=== PATIENT | female | born 2000 | race Caucasian/White ===

== ENCOUNTER 2022-04-06 13:49 | Emergency (ER) | payer MEDICAID, SELFPAY ==
[2022-04-06 14:11] VITALS: BP 146/93; PULSE 99; RESP 18; O2SAT 100
--- NOTE | 2022-04-06 17:00 | ED.FEMALEGU ---
HPI - Female Genitourinary General Chief complaint: Vaginal Bleeding Stated complaint: heavy bleeding on cycle, dizzy and lightheaded Time Seen by Provider: 04/06/22 16:55 Source: patient Mode of arrival: ambulatory Limitations: no limitations History of Present Illness HPI Narrative: Patient is a 21-year-old female who presents the ED with report of lightheadedness and heavy vaginal bleeding. Patient reports she began her menstrual cycle on Saturday. She states her cycles are typically very irregular and ranged from light to heavy, typically lasting 4 to 5 days at a time if she has another month. Over the last couple days, patient reports having increased vaginal bleeding, heavier than usual. She states she has been bleeding through an overnight pad every hour. She has felt intermittently lightheaded and nauseous. She has not vomited or passed out. She also reports having intermittent headache, for which she took Excedrin and ibuprofen today. She called her [employer]PER, Dr. Buckner, and was advised to come to the ED. Patient denies any fever, chills, abdominal pain, dysuria, urinary frequency, rectal bleeding, vision changes, focal weakness, cough or cold symptoms. She is on the Nexplanon arm implant control. Patient does mention she was seen at [facility] 2 weeks ago and diagnosed with a urinary tract infection. Per records, she has been taking Macrobid for this. Related Data Allergies Allergy/AdvReac Type Severity Reaction Status Date / Time No Known Allergies Allergy Mild Unverified 10/12/08 02:50 Review of Systems Review of Systems: CONSTITUTIONAL: Denies fever, chills. EYES: Denies visual changes. ENT: Denies rhinorrhea, congestion, sore throat. CARDIOVASCULAR: Denies chest pain. RESPIRATORY: Denies cough or dyspnea. GASTROINTESTINAL: Reports nausea. Denies abdominal pain, rectal bleeding, vomiting, or diarrhea. GENITOURINARY: Reports heavy vaginal bleeding. Denies dysuria, urinary frequency. MUSCULOSKELETAL: Denies back pain. NEUROLOGIC: Reports [place], lightheadedness. Denies syncope, numbness, or focal weakness. All systems reviewed & are unremarkable except as noted in HPI and below PMFSH Past Medical History Medical History History of ovarian cyst Surgical History Surgical History (Updated 04/06/22 @ 17:35 by Jolly Murphy PA-C) No pertinent past surgical history Social History Social History (Updated 04/06/22 @ 17:35 by Jolly Murphy PA-C) Smoking status: Never smoker Exam Narrative: GENERAL: Well appearing, obese, non-toxic, in no acute distress. HEAD: Normocephalic, atraumatic. NECK: Supple. No adenopathy, no masses. RESPIRATORY: Airway patent, respirations nonlabored. Clear to auscultation bilaterally, no rales, rhonchi, wheezing. CARDIOVASCULAR: Regular rate and rhythm without murmurs, rubs, or gallops. Peripheral pulses 2+ and equal bilaterally. ABDOMINAL: Soft, minimal tenderness to palpation in L lower abdomen. Nondistended, no hepatosplenomegaly. Normoactive BS. MUSCULOSKELETAL: Moves all extremities. Strength/ROM intact without gross deformities. PELVIC: Normal external genitalia. Speculum exam with some blood in vaginal vault and coming from cervical os. No pooling of blood, profuse bleeding, or signs of hemorrhage. No significant CMT. No genital lesions. SKIN: Warm, dry, normal color. No rashes. NEURO: A&O X3. Speech clear. Cranial nerves II-XII grossly intact. Steady gait. No ataxic movements. PSYCHIATRIC: Appropriate mood and affect. Normal interaction. Course Vital Signs Vital signs: Vital Signs Pulse Rate 99 04/06/22 14:11 Respiratory Rate 18 04/06/22 14:11 Blood Pressure 146/93 H 04/06/22 14:11 Pulse Oximetry 100 04/06/22 14:11 Oxygen Delivery Room Air 04/06/22 14:11 Pulse Rate 80 04/06/22 19:51 Respiratory Rate 18 04/06/22 19:51 Blood Pressure 123/83 04/06/22 19:51 Pulse Oximetr
[2022-04-06 17:25] LABS: Basophils Absolute Auto 0.1 K/mm3 (0.0-0.1); Basophils Percent Auto 0.5 % (0.2-1.2); Eosinophils Absolute Auto 0.1 K/mm3 (0-0.3); Eosinophils Percent Auto 0.9 % (0-4.4); Hematocrit 38.5 % (37.0-47.0); Hemoglobin 12.4 g/dL (12.0-15.0); Immature Granulocyte Absolute 0.03 K/mm3 (0.00-0.031); Immature Granulocyte Percent A 0.3 % (0-0.5); Lymphocytes Absolute Auto 3.27 K/mm3 (0.9-3.2); Lymphocytes Percent Auto 30.6 % (18.3-44.2); Mean Corpuscular HGB Conc 32.2 g/dl (32-36); Mean Corpuscular Hemoglobin 28.8 pg (26-34); Mean Corpuscular Volume 89.3 fl (80-100); Mean Platelet Volume 9.3 fl (7.4-10.4); Neutrophils Absolute Auto 6.3 K/mm3 (1.3-6.7); Neutrophils Percent Auto 58.7 % (45.5-73.1); Platelet Count Result 366 k/mm3 (150-375); Red Blood Count 4.31 M/mm3 (4.2-5.4); Red Cell Distribution Width 13.2 % (11.5-14.5); White Blood Count 10.7 K/mm3 (4.5-10.0)
[2022-04-06 17:34] LABS: Add Urine Microscopic? YES; Appearance Urine Slightly Cloudy (Clear); Bilirubin Urine 1+ (Negative); Blood Urine 3+ (Negative); Color Urine Red (Yellow); Glucose Urine UA Negative (Negative); Ketones Urine Negative (Negative); Leukocyte Esterase Ur Trace LEU/UL (Negative); Nitrate Urine Negative (Negative); Protein Urine 3+ mg/dL (Negative); Specific Grav Ur 1.025 (1.001-1.035)
[2022-04-06 17:34] LABS: Alanine Aminotransferase 22 U/L (6-35); Albumin Level 4.6 g/dL (3.5-5.1); Alkaline Phosphatase 81 U/L (38-126); Anion Gap 9 mmol/L (8-16); Aspartate Amino Transferase 33 U/L (14-36); Bilirubin,Total 0.2 mg/dL (0.2-1.3); Blood Urea Nitrogen 13 mg/dL (7-17); Calcium 9.2 mg/dL (8.4-10.2); Carbon Dioxide 25 mmol/L (22-30); Chloride 107 mmol/L (98-107); Estimated CRCL calculation 147 ml/min; Estimated Glomerular Filt Rate > 60; Glucose 104 mg/dL (65-110); Sodium 141 mmol/L (137-145)
[2022-04-06] MEDS: ONDANSETRON INJ 4 MG/2 ML VIAL IV PUSH (17:47)
[2022-04-06] MEDS: SODIUM CHLORIDE 0.9% IV 1,000 ML 999 ML IV CONT (17:47)
[2022-04-06 17:48] LABS: Bacteria Urine Trace /hpf; Mucus Urine Rare /lpf; RBC Urine >75 /hpf (0-2); Squamous Epithelial Cell Urine Many /hpf (Few); WBC Urine 31-50 /hpf
[2022-04-06 17:51] LABS: Beta HCG Quantitative < 2.39 mIU/ML
[2022-04-06 18:22] VITALS: BP 118/74; PULSE 80; RESP 16
[2022-04-06 19:51] VITALS: BP 123/83; PULSE 80; RESP 18; O2SAT 100
== END 2022-04-06 19:52 | disposition home or self-care (01) ==
PROVIDERS: Physician Assistant; Emergency Provider Emergency Medicine; PCP Pediatrics
DX: N39.0 Urinary tract infection, site not specified (principal); N93.9 Abnormal uterine and vaginal bleeding, unspecified
CPT/HCPCS: 36415; 80053; 81001; 84702; 85025; 85461; 87086; 87088; 96361; 96365; 96375; 99284; J0131; J2405; J7030

== ENCOUNTER 2022-08-21 12:51 | Emergency (ER) | payer BC, SELFPAY ==
[2022-08-21 13:05] VITALS: BP 148/91; PULSE 85; RESP 16; TEMP 37; O2SAT 100
[2022-08-21 14:39] LABS: Basophils Absolute Auto 0.1 K/mm3 (0.0-0.1); Basophils Percent Auto 0.7 % (0.2-1.2); Eosinophils Absolute Auto 0.1 K/mm3 (0-0.3); Hematocrit 41.9 % (37.0-47.0); Immature Granulocyte Absolute 0.02 K/mm3 (0.00-0.031); Immature Granulocyte Percent A 0.2 % (0-0.5); Lymphocytes Absolute Auto 3.18 K/mm3 (0.9-3.2); Mean Corpuscular HGB Conc 33.4 g/dl (32-36); Mean Corpuscular Volume 86.9 fl (80-100); Mean Platelet Volume 9.1 fl (7.4-10.4); Monocytes Absolute Auto 0.7 K/mm3 (0.1-0.6); Monocytes Percent Auto 6.9 % (2.6-8.5); Neutrophils Absolute Auto 6.2 K/mm3 (1.3-6.7); Neutrophils Percent Auto 60.2 % (45.5-73.1); Platelet Count Result 386 k/mm3 (150-375); Red Blood Count 4.82 M/mm3 (4.2-5.4); Red Cell Distribution Width 12.9 % (11.5-14.5); White Blood Count 10.3 K/mm3 (4.5-10.0)
[2022-08-21 14:49] LABS: Alanine Aminotransferase 25 U/L (6-35); Albumin Level 5.1 g/dL (3.5-5.1); Alkaline Phosphatase 92 U/L (38-126); Anion Gap 18 mmol/L (8-16); Aspartate Amino Transferase 40 U/L (14-36); Bilirubin,Total 0.3 mg/dL (0.2-1.3); Blood Urea Nitrogen 14 mg/dL (7-17); Calcium 9.5 mg/dL (8.4-10.2); Carbon Dioxide 24 mmol/L (22-30); Chloride 101 mmol/L (98-107); Estimated CRCL calculation 142 ml/min; Estimated Glomerular Filt Rate > 60; Glucose 96 mg/dL (65-110); Potassium 3.5 mmol/L (3.4-5.0); Sodium 143 mmol/L (137-145)
--- NOTE | 2022-08-21 17:31 | PC.NURSE ---
pt seen ambulating out of ED in no acute distress.
== END 2022-08-21 17:31 | disposition left against medical advice (07) ==
PROVIDERS: Emergency Provider Emergency Medicine; PCP Pediatrics
DX: N93.9 Abnormal uterine and vaginal bleeding, unspecified (principal)
CPT/HCPCS: 36415; 80053; 85025; 99199